=== PATIENT | male | born 1940 | race Caucasian/White ===

== ENCOUNTER → 2018-02-18 | Outpatient (CLI) | payer MEDICARE, OTHER ==
[~2018-02-18] MED LIST: DILT60TA3 PO; HYDR-3420 PO; METF500T6 PO; TAMS0.4C32 PO
== END | disposition home or self-care (01) ==
LOC: RAH 02-14 14:22
PROVIDERS: ATTEND Physician Assistant Medical
DX: M25.552 Pain in left hip (principal); R09.89 Other specified symptoms and signs involving the circulatory and respiratory systems; I65.23 Occlusion and stenosis of bilateral carotid arteries
CPT/HCPCS: 73502; 93880

== ENCOUNTER → 2024-04-29 | Outpatient (CLI) | payer OTHER ==
[~2024-04-29] MED LIST changes: +METF-444 PO; -METF500T6 PO
== END | disposition home or self-care (01) ==
LOC: RAH 09:53
PROVIDERS: ATTEND Internal Medicine Critical Care Medicine
DX: K43.9 Ventral hernia without obstruction or gangrene (principal); R19.00 Intra-abdominal and pelvic swelling, mass and lump, unspecified site
CPT/HCPCS: 76700